=== PATIENT | male | born 1955 | race Two or more races ===

== ENCOUNTER → 2019-07-21 15:49 | Outpatient (CLI) | payer MEDICARE, OTHER, SELFPAY ==
[2019-07-21 15:08] VITALS: BMI 24.2
[2019-07-21 16:29] LABS: Hematocrit 44.5 % (40-54); Hemoglobin 14.7 g/dL (13.0-16.5)
[2019-07-21 16:59] LABS: ALB/GLOB Ratio 1.2 RATIO (0.9-2.4); AST(SGOT) 20 U/L (15-37); Alanine Aminotransfer ALT/SGPT 39 U/L (16-61); Alkaline Phosphatase 72 U/L (45-117); Anion Gap 4 (5-15); BUN 19 mg/dL (7-18); BUN/Creat Ratio 18.1 RATIO (10-20); Calcium,Total 9.5 mg/dL (8.5-10.1); Chloride 109 mmol/L (98-107); Creatinine, Serum 1.05 mg/dL (0.70-1.30); EST Glomerular Filtration Rate 75 mL/min (>60); Est Glom Filt Rate - Afr Amer 91 mL/min (>60); Globulin 3.4 g/dL (2.2-4.2); Glucose 50 mg/dL (74-106); PSA,Total - Annual Screen 0.55 ng/mL (0.00-4.00); Potassium 3.9 mmol/L (3.5-5.1); Protein, Total 7.4 g/dL (6.4-8.2); Sodium Level 142 mmol/L (136-145); T4 Free Direct 0.84 ng/dL (0.76-1.46); Thyroid Stim Hormone (TSH) 1.49 uIU/mL (0.358-3.74)
[2019-07-25 14:07] LABS: Testosterone, Free 0.16 ng/dL (5.00-21.00)
[2019-07-27 20:26] LABS: Testosterone, % Free 1.37 % (1.50-4.20); Testosterone, Total 12 ng/dL (264-916)
== END ==
PROVIDERS: Referring Provider Internal Medicine Endocrinology, Diabetes & Metabolism; Visit Provider Internal Medicine Endocrinology, Diabetes & Metabolism
DX: E29.1 Testicular hypofunction (principal); Z12.5 Encounter for screening for malignant neoplasm of prostate; Z79.890 Hormone replacement therapy; Z51.81 Encounter for therapeutic drug level monitoring; Z82.3 Family history of stroke
CPT/HCPCS: 80053; 80061; 82533; 84153; 84402; 84403; 84439; 84443; 85014; 85018; G0103